=== PATIENT | female | born 1990 | race Hispanic/Latino ===

== ENCOUNTER 2021-06-13 09:30 | Outpatient (RCR) | payer OTHER, SELFPAY ==
[2021-06-13 10:30] VITALS: BP 101/49; PULSE 75
== END 2021-07-07 08:21 | disposition home or self-care (01) ==
LOC: ANHOBOP 09:30
PROVIDERS: Visit Provider Obstetrics & Gynecology
DX: Z34.93 Encounter for supervision of normal pregnancy, unspecified, third trimester (principal); Z3A.38 38 weeks gestation of pregnancy
CPT/HCPCS: 59025

== ENCOUNTER 2021-06-19 06:53 | Inpatient (IN) | payer OTHER, SELFPAY ==
[2021-06-19] VITALS (126 sets, daily range): BP systolic 83–139; BP diastolic 32–95; PULSE 36–102; RESP 18; TEMP 36.1–36.8; O2SAT 76–100; BMI 31.4
--- NOTE | 2021-06-19 06:53 | LDADM ---
This patient, Melony Jenkins, was admitted to Labor/Delivery/Recovery 104 on 06/19/21 at 06:53. Plans for labor, pain management and were discussed with patient. Patient/family oriented to hospital policies and general routines including ID bracelet, bed and alarms, visiting hours, pain management, procedures, bathroom and other care routines, personal items, smoking policy, room service/diet and guest tray routines, security routines, and visiting hours. Patient/Family are encouraged to report perceived risks to care and to ask questions if they do not understand what they are told or what they should do. See OBIX for further documentation.
--- OUTSIDE RECORDS SUMMARY | 2021-06-19 07:02 | XMS_ITS ---
:1990 Author Care Team Providers Name Role Phone Jojo Francis Primary Care Provider Unavailable Allergies Code Code System Name Reaction Severity Status Onset NKDA ? Medications Name Status Start Date Stop Date ? ? amoxicillin 500 mg tablet Completed 06/25/20172017 take 1 tablet by oral route 3 times every day for 10 days Magnesium (oxide/AA chelate) Completed ? 300 mg capsule NuvaRing 0.12 mg-0.015 mg/24 hr vaginal Completed 08/28/19 17 05/17/2017 INSERT 1 VAGINAL RING BY VAGINAL ROUTE EVERY MONTH LEAVE IN PLACE FOR 3 WEEKS, REMOVE FOR 1 WEEK OneTouch Delica Plus Lancet 33 gauge Active ? Not available USE 4 LANCETS PER DAY TO TEST FASTING BLOOD SUGAR AND ONE HOUR AFTER MEALS. OneTouch Verio Flex Meter Active ? Not av ailable USE DIRECTED OneTouch Verio test strips Active ? Not a vailable USE 4 STRIPS PER DAY TO TEST FASTING BLOOD SUGAR AND ONE HOUR A FTER MEALS. 10 mg-400 mcg capsule Completed ? 1 04/20/2010 Vitamin Active ? Not available Tylenol Active ? Not available Vitamins and Minerals tablet Completed ? Problems Name Status Onset Date Source ? Known or Suspected Abnormality Unknown 06/16/2010 History Affecting Management of Mother Primigravida Unknown 06/23/2010 History Routine Care Unknown 08/07/2010 History Delivery Normal Unknown 10/12/2010 History Single Live
--- OUTSIDE RECORDS SUMMARY | 2021-06-19 07:02 | XMS_ITS | Encounter Summary ---
:1990 Author Reason for Visit None recorded. Assessment and Plan 1. Gestational diabetes mellitus , class A>1< ? non-stress test Discussion Note: None recorded.Patient educational handouts: No information available. Plan of Care Reminders Provider Appointments Ob Routine 06/20/2021 Dexter Key 9:15AM MD Holden ? Ob Routine 06/27/2021 Jojo carcamo 9:15AM MD Tito ? 3Hr on or around Denis roberson Glucose 08/02/2021 MD [facility] Lab None ? ? recorded. Referral None ? ? recorded. Procedures None ? ? recorded. Surgeries None ? ? recorded. Imaging Non-stress 06/06/2021 Sejal boles Test Medications Name Start Date ? ? OneTouch Delica Plus Lancet 33 gauge ? USE 4 LANCETS PER DAY TO TEST FASTING BLOOD SUGAR AND ONE HOUR AFTER MEALS. OneTouch Verio Flex Meter ? USE DIRECTED OneTouch Verio test strips ? USE 4 STRIPS PER DAY TO TEST FASTING BLOOD SUGAR AND ONE HOUR AFTER MEALS. Vitamin ? Tylenol ? Medications Administered None recorded. Vitals None recorded. Results Lab Results None recorded. Allergies Code Code System Name Reaction Severity Onset
--- OUTSIDE RECORDS SUMMARY | 2021-06-19 07:02 | XMS_ITS | Encounter Summary ---
:1990 Author Reason for Visit None recorded. Assessment and Plan 1. Gestational diabetes mellitus , class A>1< ? US, obstetric, follow-up Discussion Note: None recorded.Patient educational handouts: No information available. Plan of Care Reminders Provider Appointments Ob Routine 06/20/2021 Dexter dejah Key 9:15AM MD [facility] ? Ob Routine 06/27/2021 Jojo carcamo 9:15AM MD Tito ? 3Hr on or around Denis roberson Glucose 08/02/2021 MD [facility] Lab None ? ? recorded. Referral None ? ? recorded. Procedures None ? ? recorded. Surgeries None ? ? recorded. Imaging US, 05/30/2021 [place] [facility], Follow-up Medications Name Start Date ? ? OneTouch [...]
--- OUTSIDE RECORDS SUMMARY | 2021-06-19 07:02 | XMS_ITS | Encounter Summary ---
[...] Surgeries None ? ? recorded. Imaging Non-stress 05/30/2021 Sejal boles Test Medications Name Start Date [...]
--- OUTSIDE RECORDS SUMMARY | 2021-06-19 07:02 | XMS_ITS | Encounter Summary ---
:1990 Author Reason for Visit OB visit OB [id number] EDC 06/21/2021 LMP 09/14/2020 Assessment and Plan Assessment Note Patient is __34_weeks . Dis cussed plan. 1. Routine care Discussion Note: None recorded.Patient educational handouts: No [...] recorded. Surgeries None ? ? recorded. Imaging None ? ? recorded. Medications Name Start Date ? ? OneTouch [...] Tylenol ? Medications Administered None recorded. Vitals Height Weight BMI Blood Pressure 5 ft 3 in 168 lbs 29.8 kg/m2 103/70 mm[Hg] Results
--- OUTSIDE RECORDS SUMMARY | 2021-06-19 07:02 | XMS_ITS | Encounter Summary ---
:1990 Author Reason for Visit OB visit Assessment and Plan Assessment Note Patient is ___weeks . Discu ssed plan. 1. Routine care Discussion Note: None [...] BMI Blood Pressure 5 ft 3 in 172 lbs 30.5 kg/m2 119/79 mm[Hg] Results Lab Results
--- OUTSIDE RECORDS SUMMARY | 2021-06-19 07:02 | XMS_ITS | Encounter Summary ---
[...] Surgeries None ? ? recorded. Imaging Non-stress 05/27/2021 Sejal boles Test Medications Name Start Date [...] Tylenol ? Medications Administered None recorded. Vitals Weight Blood Pressure 169 lbs 115/70 mm[Hg] Results Lab Results None recorded. Allergies
--- OUTSIDE RECORDS SUMMARY | 2021-06-19 07:02 | XMS_ITS | Encounter Summary ---
[...] Surgeries None ? ? recorded. Imaging Non-stress 06/03/2021 Sejal boles Test Medications Name Start Date [...] recorded. Vitals Weight Blood Pressure 169 lbs 130/70 mm[Hg] Results Lab Results None recorded. Allergies
--- OUTSIDE RECORDS SUMMARY | 2021-06-19 07:02 | XMS_ITS | Encounter Summary ---
[...] Surgeries None ? ? recorded. Imaging Non-stress 05/20/2021 Sejal boles Test Medications Name Start Date [...] Administered None recorded. Vitals Weight Blood Pressure 170 lbs 138/70 mm[Hg] Results Lab Results None recorded. Allergies
--- OUTSIDE RECORDS SUMMARY | 2021-06-19 07:02 | XMS_ITS | Encounter Summary ---
[...] Surgeries None ? ? recorded. Imaging Non-stress 06/17/2021 Sejal boles Test Medications Name Start Date [...] Administered None recorded. Vitals Weight Blood Pressure 172 lbs 134/88 mm[Hg] Results Lab Results None recorded. Allergies
--- OUTSIDE RECORDS SUMMARY | 2021-06-19 07:02 | XMS_ITS | Encounter Summary ---
[...] BMI Blood Pressure 5 ft 3 in 170 lbs 30.1 kg/m2 112/73 mm[Hg] Results Lab Results
--- OUTSIDE RECORDS SUMMARY | 2021-06-19 07:02 | XMS_ITS | Encounter Summary ---
[...] ft 3 in 170 lbs 30.1 kg/m2 107/70 mm[Hg] Results Lab Results
--- OUTSIDE RECORDS SUMMARY | 2021-06-19 07:02 | XMS_ITS | Encounter Summary ---
[...] Surgeries None ? ? recorded. Imaging Non-stress 05/23/2021 Sejal boles Test Medications Name Start Date [...]
--- OUTSIDE RECORDS SUMMARY | 2021-06-19 07:02 | XMS_ITS | Encounter Summary ---
:1990 Author Reason for Visit OB visit Assessment and Plan Assessment Note Patient is ___weeks . Discu ssed plan. 1. Routine care Discussion Note: None recorded.Patient educational handouts: No information available. Plan of Care Reminders Provider Appointments Ob Routine 06/20/2021 eDxter Key 9:15AM MD [facility] ? Ob Routine [...] BMI Blood Pressure 5 ft 3 in 171 lbs 30.3 kg/m2 117/78 mm[Hg] Results Lab Results
--- OUTSIDE RECORDS SUMMARY | 2021-06-19 07:02 | XMS_ITS | Encounter Summary ---
[...] Surgeries None ? ? recorded. Imaging Non-stress 06/10/2021 Sejal boles Test Medications Name Start Date [...]
--- OUTSIDE RECORDS SUMMARY | 2021-06-19 07:02 | XMS_ITS | Encounter Summary ---
[...] Surgeries None ? ? recorded. Imaging Non-stress 05/16/2021 Sejal boles Test Medications Name Start Date [...]
--- OUTSIDE RECORDS SUMMARY | 2021-06-19 07:03 | XMS_ITS | Encounter Summary ---
[...] ft 3 in 170 lbs 30.1 kg/m2 119/76 mm[Hg] Results Lab Results
--- OUTSIDE RECORDS SUMMARY | 2021-06-19 07:03 | XMS_ITS | Encounter Summary ---
:1990 Author Reason for Visit None recorded. Assessment and Plan None recorded.Discussion Note: None recorded.Patient educational handouts: No information available. Plan of Care Reminders Provider Appointments Ob Routine 06/20/2021 Dexter Key 9:15AM MD [facility] ? Ob Routine 06/27/2021 Jojo carcamo 9:15AM MD Tito ? 3Hr on or around Denis [place] Glucose 08/02/2021 MD [facility] Lab None ? [...] Code Code System Name Reaction Severity Onset NKDA ? ? ? Problems Name Status Onset Date Source ?
--- OUTSIDE RECORDS SUMMARY | 2021-06-19 07:03 | XMS_ITS | Encounter Summary ---
:1990 Author Reason for Visit NST 33.3 Assessment and Plan 1. Gestational diabetes mellitus [...] Surgeries None ? ? recorded. Imaging Non-stress 05/06/2021 Sejal boles Test Medications Name Start Date [...] ? Medications Administered None recorded. Vitals Height 5 ft 3 in Results Lab Results None recorded. Allergies Code Code System Name Kenisha
--- OUTSIDE RECORDS SUMMARY | 2021-06-19 07:03 | XMS_ITS | Encounter Summary ---
:1990 Author Reason for Visit None recorded. Assessment and Plan Assessment Note Diet Teaching 1. Gestational diabetes mellitus , class A>1< Virtual diet teaching complete d. Carb counts for meals and snacks reviewed. Pt instructed on how to read nutritional labels and instructed on researching carb counts for fresh fruits and vegetables. Pt will be provided with print outs with some fresh food carb counts when she is here tomorrow for her routine OB appt and online resources reinforced for checking fresh food serving sizes and carb counts. Pt instructed on blood sugar level goals an d importance of checking blood sugar and keeping blood sugar log. Pt instructed o n high protein low carb and provided with food recommendations. Pt instructed on 2 200 calorie ADA diet and importance of regular meals and snacks with controlled carb amounts for a retirement stable control of blood sugar. Pt has an appt tomorrow and OB will follow up next week to review her BS log again. Pt verbalized understandin g of information discussed. Mi Hernandes RN Discussion Note: None recorded.Patient educational handouts: No [...]
--- OUTSIDE RECORDS SUMMARY | 2021-06-19 07:03 | XMS_ITS | Encounter Summary ---
[...] Surgeries None ? ? recorded. Imaging Non-stress 05/02/2021 Sejal boles Test Medications Name Start Date [...]
--- OUTSIDE RECORDS SUMMARY | 2021-06-19 07:03 | XMS_ITS | Encounter Summary ---
:1990 Author Reason for Visit OB visit Assessment and Plan 1. Dilatation of renal pel vis 2. Gestational diabetes mellitus Discussion Note: None recorded.Patient educational handouts: No [...] BMI Blood Pressure 5 ft 3 in 169 lbs 29.9 kg/m2 115/77 mm[Hg] Results Lab Results None recorded. Allergies
--- OUTSIDE RECORDS SUMMARY | 2021-06-19 07:03 | XMS_ITS | Encounter Summary ---
[...] Surgeries None ? ? recorded. Imaging Non-stress 05/09/2021 Sejal boles Test Medications Name Start Date [...]
--- OUTSIDE RECORDS SUMMARY | 2021-06-19 07:03 | XMS_ITS | Encounter Summary ---
:1990 Author Reason for Visit None recorded. Assessment and Plan 1. condition affecting obs tetrical care of mother ? US, obstetric, follow-up Discussion Note: None [...] Surgeries None ? ? recorded. Imaging US, 04/02/2021 [place] [facility], Follow-up Medications Name Start Date ? [...] recorded. Allergies Code Code System Name Reaction Brigid
--- OUTSIDE RECORDS SUMMARY | 2021-06-19 07:03 | XMS_ITS | Encounter Summary ---
:1990 Author Reason for Visit OB visit Assessment and Plan 1. Routine care 2. Dilatation of renal pel vis Discussion Note: None recorded.Patient educational handouts: No [...] ft 3 in 169 lbs 29.9 kg/m2 117/76 mm[Hg] Results Lab Results None recorded. Allergies
--- OUTSIDE RECORDS SUMMARY | 2021-06-19 07:03 | XMS_ITS | Encounter Summary ---
[...] Surgeries None ? ? recorded. Imaging Non-stress 05/13/2021 Sejal boles Test Medications Name Start Date [...] recorded. Vitals Weight Blood Pressure 170 lbs 114/75 mm[Hg] Results Lab Results None recorded. Allergies
--- OUTSIDE RECORDS SUMMARY | 2021-06-19 07:03 | XMS_ITS | Encounter Summary ---
[...] Surgeries None ? ? recorded. Imaging US, 05/02/2021 [place] [facility], Follow-up Medications Name Start Date ? [...]
[2021-06-19 07:50] LABS: Basophils Percent Auto 0.2 % (0.2-1.2); Eosinophils Percent Auto 0.5 % (0-4.4); Hematocrit 38.7 % (37.0-47.0); Hemoglobin 13.1 g/dL (12.0-15.0); Immature Granulocyte Absolute 0.04 K/mm3 (0.00-0.031); Immature Granulocyte Percent A 0.5 % (0-0.5); Lymphocytes Absolute Auto 1.84 K/mm3 (0.9-3.2); Lymphocytes Percent Auto 21.5 % (18.3-44.2); Mean Corpuscular HGB Conc 33.9 g/dl (32-36); Mean Corpuscular Hemoglobin 30.4 pg (26-34); Mean Corpuscular Volume 89.8 fl (80-100); Mean Platelet Volume 12.9 fl (7.4-10.4); Monocytes Absolute Auto 0.5 K/mm3 (0.1-0.6); Neutrophils Absolute Auto 6.1 K/mm3 (1.3-6.7); Neutrophils Percent Auto 71.3 % (45.5-73.1); Platelet Count Result 142 k/mm3 (150-375); Red Blood Count 4.31 M/mm3 (4.2-5.4); Red Cell Distribution Width 13.4 % (11.5-14.5); White Blood Count 8.6 K/mm3 (4.5-10.0)
--- NOTE | 2021-06-19 07:51 | PC.NURSE ---
Dr. Hatch notified of admitting blood sugar result of 130
--- NOTE | 2021-06-19 07:58 | WPDHPUPDATE1 ---
History and Physical Update Update Date/Time: 06/19/21 07:58 AROM - clear - 3/60/-3 Elective induction of labor, mulltip, reassuring heart tones History and Physical has been reviewed, including an updated exam of the patient. There are NO changes in the patient's condition. Risks, benefits, and alternatives have been discussed and questions answered. Patient agrees to proceed with procedure.
[2021-06-19] MEDS: LACTATED RINGERS 1,000 ML 125 ML IV CONT ×3 (08:05→13:26)
[2021-06-19] MEDS: OXYTOCIN 30 UNITS/NS 500 ML 30 UNITS/500 ML BAG IV CONT (08:06)
[2021-06-19 09:35] LABS: Rapid Plasma Reagin Non-Reactive (NonReactive)
[2021-06-19 10:16] LABS: Glucose Point of Care 130 mg/dl (65-105)
[2021-06-19 11:39] LABS: Glucose Point of Care 84 mg/dl (65-105)
--- NOTE | 2021-06-19 12:25 | WPDANESEPPF ---
Anes - Initial Pre Proc Eval Procedure: labor epidural Date/Time: 06/19/21 12:25 Surgeon: Clara Hatch MD Pre Op Diagnosis: labor pain Pre Op Diagnosis: IOL Patient Data Age: 31 Gender: F Height: 1.57 m Weight: 78 kg Last Vital Signs Temp 36.3 C L 06/19/21 11:58 Pulse 61 06/19/21 12:24 BP 121/59 L 06/19/21 12:24 Pulse Ox 100 06/19/21 12:24 Allergies Allergy/AdvReac Type Severity Reaction Status Date / Time No Known Allergies Allergy Unverified 12/24/17 09:54 Home Medications Medication Instructions Recorded Confirmed Type [id number] 1 tablet PO DAILY 06/19/21 06/19/21 History [] Laboratory Tests 06/19/21 06/19/21 06/19/21 07:33 07:33 07:33 WBC 8.6 K/mm3 K/mm3 (4.5-10.0) RBC 4.31 M/mm3 M/mm3 (4.2-5.4) Hgb 13.1 g/dL g/dL (12.0-15.0) Hct 38.7 % % (37.0-47.0) MCV 89.8 fl fl (80-100) MCH 30.4 pg pg (26-34) MCHC 33.9 g/dl g/dl (32-36) RDW 13.4 % % (11.5-14.5) Plt Count 142 k/mm3 L k/mm3 (150-375) MPV 12.9 fl H fl (7.4-10.4) Immature Gran % (Auto) 0.5 % % (0-0.5) Neut % (Auto) 71.3 % % (45.5-73.1) Lymph % (Auto) 21.5 % % (18.3-44.2) [place] % (Auto) 6.0 % % (2.6-8.5) Eos % (Auto) 0.5 % % (0-4.4) Baso % (Auto) 0.2 % % (0.2-1.2) Lymph # (Auto) 1.84 K/mm3 K/mm3 (0.9-3.2) [place] # (Auto) 0.5 K/mm3 K/mm3 (0.1-0.6) Eos # (Auto) 0.0 K/mm3 K/mm3 (0-0.3) Baso # (Auto) 0.0 K/mm3 K/mm3 (0.0-0.1) Abs Immat Gran (auto) 0.04 K/mm3 H K/mm3 (0.00-0.031) Absolute Neuts (auto) 6.1 K/mm3 K/mm3 (1.3-6.7) Absolute Nucleated RBC 0.0 K/mm3 K/mm3 (0.0-0.012) Nucleated RBC % 0.0 % % (0.0-0.2) POC Capillary Glucose RPR Non-reactive (NonReactive) Blood Type B Positive Antibody Screen Negative 06/19/21 06/19/21 07:33 11:34 WBC RBC Hgb Hct MCV MCH MCHC RDW Plt Count MPV Immature Gran % (Auto) Neut % (Auto) Lymph % (Auto) [place] % (Auto) Eos % (Auto) Baso % (Auto) Lymph # (Auto) [place] # (Auto) Eos # (Auto) Baso # (Auto) Abs Immat Gran (auto) Absolute Neuts (auto) Absolute Nucleated RBC Nucleated RBC % POC Capillary Glucose 130 mg/dl H mg/dl 84 mg/dl mg/dl (65-105) (65-105) RPR Blood Type Antibody Screen Patient hx anesthesia problems: none Family hx anesthesia problems: none Results Review: All pre-operative results and documents have been reviewed as part of the pre-operative evaluation. [facility] Past Medical History Medical History (Updated 06/19/21 @ 12:25 by Ammon Cabrera DO) GDM (gestational diabetes mellitus) Social History Social History Smoking status: Never smoker Substance use: never Spiritual care concerns: No Anes - Eval Final PreProcedure Day of Procedure 06/19/21 12:25 Patient weight: obese Heart: regular rate and rhythm Lungs: clear to auscultation and normal air movement Airway: Mallampati scale class II Neurological: alert and oriented Last oral intake: >/= 8 hours ASA classification: III Emergent: no Anesthetic plan: proceed Anesthesia type and monitoring: regional spinal and standard monitoring Results Review: All pre-operative results and documents have been reviewed as part of the pre-operative evaluation. Informed Consent: The patient's anesthetic plan and its attendant risks and benefits were discussed with the patient/family/POA. Questions were solicited and answers provided to the satisfaction of the patient/family/POA.
[2021-06-19 13:42] LABS: Glucose Point of Care 78 mg/dl (65-105)
[2021-06-19 15:34] LABS: Glucose Point of Care 81 mg/dl (65-105)
--- NOTE | 2021-06-19 16:22 | P.PCNOB_ITS ---
OB - Delivery Note Procedure Delivery date: 06/19/21 Procedure: Induction method: AROM and Per Pitocin Protocol Delivery monitor: External FHT and Internal Uterine [place] Baby Date of : 06/19/21 Time of : 16:09 Weeks of gestation at delivery: 39 gender: Male Weight (pounds): 6 Weight (ounces): 11 score one minute: 9 score five minutes: 9
[2021-06-19] MEDS: OXYTOCIN 30 UNITS/NS 500 ML 30 UNITS/500 ML BAG 125 UNITS IV CONT (16:42)
[2021-06-19] MEDS: IBUPROFEN 600 MG TABLET PO (17:56)
[2021-06-20] MEDS: IBUPROFEN 600 MG TABLET PO ×2 (00:14→09:35)
[2021-06-20 00:18] VITALS: BP 109/70; PULSE 73; RESP 18; TEMP 36.3; O2SAT 98
[2021-06-20 03:59] VITALS: BP 102/65; PULSE 78; RESP 18; TEMP 36.2; O2SAT 99
[2021-06-20 04:19] LABS: Hemoglobin 11.9 g/dL (12.0-15.0)
--- NOTE | 2021-06-20 07:38 | PM.OBPNVD ---
OB - PN: Subj Subjective Date/time seen: 06/20/21 07:38 Patient comments: no complaints and pain well controlled baby status: doing well [place] feeding status: breast and bottle feeding Narrative: would like DC home later today OB - PN: Obj Data Labs CBC & Chem 7: 06/20/21 03:20 Labs: Laboratory Results - last 24 hr 06/19/21 06/19/21 06/19/21 07:33 07:33 07:33 WBC 8.6 RBC 4.31 Hgb 13.1 Hct 38.7 MCV 89.8 MCH 30.4 MCHC 33.9 RDW 13.4 Plt Count 142 L MPV 12.9 H Immature Gran % (Auto) 0.5 Neut % (Auto) 71.3 Lymph % (Auto) 21.5 [place] % (Auto) 6.0 Eos % (Auto) 0.5 Baso % (Auto) 0.2 Lymph # (Auto) 1.84 [place] # (Auto) 0.5 Eos # (Auto) 0.0 Baso # (Auto) 0.0 Abs Immat Gran (auto) 0.04 H Absolute Neuts (auto) 6.1 Absolute Nucleated RBC 0.0 Nucleated RBC % 0.0 POC Capillary Glucose RPR Non-reactive Blood Type B Positive Antibody Screen Negative 06/19/21 06/19/21 06/19/21 07:33 11:34 13:39 WBC RBC Hgb Hct MCV MCH MCHC RDW Plt Count MPV Immature Gran % (Auto) Neut % (Auto) Lymph % (Auto) [place] % (Auto) Eos % (Auto) Baso % (Auto) Lymph # (Auto) [place] # (Auto) Eos # (Auto) Baso # (Auto) Abs Immat Gran (auto) Absolute Neuts (auto) Absolute Nucleated RBC Nucleated RBC % POC Capillary Glucose 130 H 84 78 RPR Blood Type Antibody Screen 06/19/21 06/20/21 15:30 03:20 WBC RBC Hgb 11.9 L Hct 35.0 L MCV MCH MCHC RDW Plt Count MPV Immature Gran % (Auto) Neut % (Auto) Lymph % (Auto) [place] % (Auto) Eos % (Auto) Baso % (Auto) Lymph # (Auto) [place] # (Auto) Eos # (Auto) Baso # (Auto) Abs Immat Gran (auto) Absolute Neuts (auto) Absolute Nucleated RBC Nucleated RBC % POC Capillary Glucose 81 RPR Blood Type Antibody Screen OB - PN A/P Assessment and Plan (1) , delivered: Code(s): O80 - Encounter for full-term uncomplicated delivery Status: Acute Plan day: 1 Plan: routine care and discharge home Comments: DC instructions given Time Spent With Patient Time: Total time spent is greater than 50% in coordination of care (as documented) at patient's floor/unit and/or counseling patient: Time with patient: less than 15 minutes Exam Narrative: NAD abdomen soft, nontender, fundus firm below the umbilicus Extremities nontender, 1+ edema
--- NOTE | 2021-06-20 07:41 | PM.OBDSVD ---
DS: Admitting Diagnosis Discharge Date 06/20/21 Admitting Diagnosis term , labor DS: Discharge Diagnosis Discharge Diagnosis (1) , delivered: Code(s): O80 - Encounter for full-term uncomplicated delivery Status: Acute OB - DS: Summary Hospital Course Hospital Course: Skyler presented in labor and had an uncomplicated vaginal delivery and course. She was discharged home on day 1. OB Procedures : Ultrasound OB Procedures Intrapartum: Spontaneous Vag Delivery OB Procedures: : None Peripartum Data Infant Delivery Method: Natural Vaginal complications: none Status at Discharge Functional status at discharge: independent ambulation Time Spent with Patient Time attestation: Total time spent providing and/or coordinating discharge services: Exam Narrative: NAD abdomen soft, appropriately tender Ext non tender, 1+ edema DS: Data Data Completed and Pending Pending studies at discharge: Pending at discharge 06/19/21 16:35 Surgical [PTH] Routine Labs on day of discharge: Labs from last 24 hours 06/20/21 06/19/21 06/19/21 03:20 15:30 13:39 WBC RBC Hgb 11.9 L Hct 35.0 L MCV MCH MCHC RDW Plt Count MPV Immature Gran % (Auto) Neut % (Auto) Lymph % (Auto) [place] % (Auto) Eos % (Auto) Baso % (Auto) Lymph # (Auto) [place] # (Auto) Eos # (Auto) Baso # (Auto) Abs Immat Gran (auto) Absolute Neuts (auto) Absolute Nucleated RBC Nucleated RBC % POC Capillary Glucose 81 78 RPR Blood Type Antibody Screen 06/19/21 06/19/21 06/19/21 11:34 07:33 07:33 WBC RBC Hgb Hct MCV MCH MCHC RDW Plt Count MPV Immature Gran % (Auto) Neut % (Auto) Lymph % (Auto) [place] % (Auto) Eos % (Auto) Baso % (Auto) Lymph # (Auto) [place] # (Auto) Eos # (Auto) Baso # (Auto) Abs Immat Gran (auto) Absolute Neuts (auto) Absolute Nucleated RBC Nucleated RBC % POC Capillary Glucose 84 130 H RPR Blood Type B Positive Antibody Screen Negative 06/19/21 06/19/21 07:33 07:33 WBC 8.6 RBC 4.31 Hgb 13.1 Hct 38.7 MCV 89.8 MCH 30.4 MCHC 33.9 RDW 13.4 Plt Count 142 L MPV 12.9 H Immature Gran % (Auto) 0.5 Neut % (Auto) 71.3 Lymph % (Auto) 21.5 [place] % (Auto) 6.0 Eos % (Auto) 0.5 Baso % (Auto) 0.2 Lymph # (Auto) 1.84 [place] # (Auto) 0.5 Eos # (Auto) 0.0 Baso # (Auto) 0.0 Abs Immat Gran (auto) 0.04 H Absolute Neuts (auto) 6.1 Absolute Nucleated RBC 0.0 Nucleated RBC % 0.0 POC Capillary Glucose RPR Non-reactive Blood Type Antibody Screen Discharge Plan Discharge Attending physician on discharge: stacey Discharging Clinician: Jojo Francis Anticipated Discharge Date/Time: 06/20/21 16:00 Patient Disposition: Home, Self-Care Activity: pelvic rest Diet: regular Discharge Instructions: ibuprofen 600mg every 6 hours as needed Patient Instructions: Antibiotic Form Stand Alone Forms: General Discharge Information Follow-up/Referrals: Clara Hatch MD [Physician] - 4 Weeks Discharge Medications: Continued 1 mg Tablet 1 tablet PO DAILY RF: 0 Date of admission: 06/19/21 06:53 Primary Care Provider: UNKNOWN,DOCTOR Admitting Provider: Clara Hatch Attending physician on admission: Clara Hatch Condition: Stable
[2021-06-20 07:55] VITALS: BP 113/74; PULSE 75; RESP 18; TEMP 36.9; O2SAT 100
[2021-06-20] MEDS: MULTIVIT/MIN/PREN/FOL AC/IRON TABLET 1 TAB PO (09:35)
[2021-06-20] MEDS: TETANUS,DIPHTHERIA,AC PERTUSSIS ADULT (0.5 ML) BOOSTRIX IM (09:36)
[2021-06-20 11:49] VITALS: BP 123/80; PULSE 72; RESP 16; TEMP 37; O2SAT 97
[2021-06-20] MEDS: DOCUSATE SODIUM 100 MG CAPSULE PO (12:55)
--- NOTE | 2021-06-20 13:09 | WPDANLDPN2 ---
Anes-Prog Note L&D Date/Time: 06/20/21 13:09 Comfortable throughout: labor and delivery Neuraxial method: epidural Epidural/Spinal procedure site: clean & non-tender Neuro status: Neuro function grossly intact. Cardiovascular status: normal Respiratory status: normal Airway patency: baseline Mental status: baseline Post-Op hydration status: normal Vital Signs: Last Vital Signs Temp 98.6 F 06/20/21 11:49 Pulse 72 06/20/21 11:49 Resp 16 06/20/21 11:49 BP 123/80 06/20/21 11:49 Pulse Ox 97 06/20/21 11:49 Pain score (VAS): 0 I/O: Intake & Output 06/19/21 06/20/21 06/20/21 23:59 07:59 15:59 Intake Total 500 Output Total 368 Balance 132 Post-procedural complaints: none Patient feedback: Patient satisfied with anesthetic care.
--- NOTE | 2021-06-20 13:12 | PC.NURSE ---
Addendum entered by Angeles Saez RN 06/20/21 13:16: Mother did state she was latching and without discomfort. has had appropriate feedings, voids, and stools since . Mother is experienced with this being her 3rd and denies any additional assistance at this time. Support person is present. Original Note: 0915 - Introductions were made, then consulted with patient to assess needs related to . Mother led the conversation with her experience feeding her so far. Mother works well with her . Encouraged understanding of the benefits of skin to skin (unwrapping and placing vertically on her chest), responsive feeding and how to watch for early feeding signs, frequency of feeding on demand stimulating with , hand expression or pumping at least 8 times in 24 hours, milk production, duration of feeding, signs of adequate intake/output and how to record on the feeding sheet. Mother states her plan is to breast and bottle feed with formula so others can feed if she is not at home. This is her practice with previous infants. Nipple care reviewed with optimal latch and good positioning. Reviewed good handwashing when or touching the breast/nipples to prevent infection. Resources used to facilitate learning were used with the mom and baby guide. Mother voiced understanding of responsive feedings, stimulating with skin to skin, hand expressed colostrum, touch, talking to to encourage if it has been 3 hours since the start of the last feeding, to call if does not latch or there is discomfort with . Reported to the primary RN.
[2021-06-21 09:38] VITALS: BP 117/66; PULSE 72; RESP 16; TEMP 36.8; O2SAT 100
== END 2021-06-20 17:55 | disposition home or self-care (01) | DRG 560 ==
LOC: ANHOB2 06-20 07:41 → ANHLDR 06-23 08:50 → ANHOB2 06-23 08:50
PROVIDERS: Admitting Provider Obstetrics & Gynecology; Visit Provider Obstetrics & Gynecology
DX: O24.429 Gestational diabetes mellitus in childbirth, unspecified control (principal); Z37.0 Single live birth; Z3A.39 39 weeks gestation of pregnancy; O36.8330 Maternal care for abnormalities of the fetal heart rate or rhythm, third trimester, not applicable or unspecified
CPT/HCPCS: 36415; 82948; 85014; 85018; 85025; 86592; 86850; 86900; 86901; 88307; 90715; A9270; J2590; J2795; J7120